=== PATIENT | male | born 1980 | race Caucasian/White ===

== ENCOUNTER 2021-02-17 22:16 | Inpatient (IN) ==
[2021-02-18] MEDS ORDERED: GLUCAGON 1 MG VIAL IM PRN (02:34)
[2021-02-18] MEDS ORDERED: DEXTROSE 50% 25 GM/50 ML VIAL IV PRN (02:34)
[2021-02-18] MEDS ORDERED: ACETAMINOPHEN 325 MG TABLET PO PRN (02:35)
[2021-02-18] MEDS ORDERED: SIMETHICONE CHEW 125 MG TABLET PO PRN (02:35)
[2021-02-18] MEDS ORDERED: MAGNESIUM SULF RIDER 2 GM/50 ML PREMIX IV PRN (02:35)
[2021-02-18] MEDS ORDERED: ONDANSETRON 4 MG/2 ML VIAL IV PRN (02:35)
[2021-02-18] MEDS ORDERED: hydrALAZINE 20 MG/1 ML VIAL IV PRN (02:35)
[2021-02-18] MEDS ORDERED: DOCUSATE SODIUM 100 MG CAPSULE PO PRN (02:35)
[2021-02-18] MEDS ORDERED: MAGNESIUM SULF RIDER 4 GM/100 ML PREMIX IV PRN (02:35)
[2021-02-18] MEDS ORDERED: OLANZapine 10 MG VIAL IM PRN (02:46)
[2021-02-18] MEDS ORDERED: HALOPERIDOL 5 MG/ML AMP IM ONE (02:57)
[2021-02-18 03:09] LABS: Basophils % 0.4 % (0.0-0.8); Eosinophils # 0.3 10*3/uL (0.0-0.87); Eosinophils % 2.6 % (0.00-10.9); Hematocrit 34.5 VOL% (42.0-52.0); Hemoglobin 11.4 GM/DL (14.0-18.0); Immature Granulocytes % 0.3 %; Immature Granulocytes Absolute 0.03 #; Lymphocytes # 1.7 10*3/uL (1.4-4.0); Lymphocytes % 17.8 % (21.2-54.2); Mean Corpuscular Volume 94.3 FL (87-102); Mean Platelet Volume 9.1 FL (9.6-12.0); Monocytes % 7.1 % (1.7-12.7); Neutrophils % 71.8 % (38.7-73.9); Platelet Count 211 T/CUMM (130-400); Red Blood Count 3.66 MC/CUMM (3.8-5.5); Red Cell Distribution Width 14.2 % (9.3-17.3); White Blood Count 9.5 T/CUMM (4-12)
[2021-02-18] MEDS: ENOXAPARIN 40 MG/0.4 ML SYRINGE SUBCUT SCH (03:30)
[2021-02-18] MEDS: SODIUM CHLORIDE 0.9% 1,000 ML IV SCH ×2 (03:31→13:38)
[2021-02-18 03:33] LABS: Alanine Aminotransferase 46 U/L (16-61); Albumin 3.2 G/DL (3.4-5.0); Alkaline Phosphatase 69 U/L (45-117); Aspartate Amino Transferase 22 U/L (0-37); Bilirubin,Total < 0.39 MG/DL (0.20-1.00); Blood Urea Nitrogen 17 MG/DL (7-18); Calcium 8.7 MG/DL (8.5-10.1); Carbon Dioxide 23 MMOL/L (21-32); Estimated Glom Filtration Rate 76 ML/MIN; Glucose 89 MG/DL (74-106); HDL Cholesterol 40 MG/DL (40-60); Potassium 3.9 MMOL/L (3.5-5.1); Risk Ratio 3.75; Sodium 143 MMOL/L (136-145); Total Protein 6.9 G/DL (6.4-8.2); Triglycerides 152 MG/DL (2-150); VLDL Cholesterol 30.4 MG/DL
[2021-02-18] MEDS: POTASSIUM CHLORIDE RIDER 10 MEQ/100 ML PREMIX IV PRN ×2 (05:06→06:31)
[2021-02-18] MEDS: risperiDONE 1 MG TABLET PO SCH ×2 (08:01→20:43)
[2021-02-18 12:53] LABS: Bacteria,Urine Occasional /HPF (Few); Bilirubin,Urine Negative (Negative); Blood, Urine Moderate mg/dL (Negative); Glucose,Urine (UA) Negative (Negative); Ketones,Urine Negative (Negative); Mucus,Urine Occasional /LPF (Occasional); Nitrite,Urine Negative (Negative); Protein,Urine 30 MG/DL; RBC,Urine 109 /HPF (0-4); Urine Appearance Slightly Hazy (Clear); Urine Color Yellow (Yellow); Urine Specific Gravity 1.008 (1.001-1.035); Urine Urobilinogen < 2.0 EU/DL (0.2-1.0)
[2021-02-18] MEDS: PIPERACILLIN/TAZOBACTAM 3,375 MG in SODIUM CHLORIDE 0.9% 100 ML IV SCH ×4 (13:38→20:43)
[2021-02-18] MEDS: HALOPERIDOL 5 MG/ML AMP IM PRN (13:38)
[2021-02-19] MEDS: ENOXAPARIN 40 MG/0.4 ML SYRINGE SUBCUT SCH (03:47)
[2021-02-19] MEDS: PIPERACILLIN/TAZOBACTAM 3,375 MG in SODIUM CHLORIDE 0.9% 100 ML IV SCH ×3 (04:57→21:07)
[2021-02-19 06:39] LABS: Basophils % 0.8 % (0.0-0.8); Eosinophils # 0.5 10*3/uL (0.0-0.87); Eosinophils % 9.8 % (0.00-10.9); Hematocrit 32.7 VOL% (42.0-52.0); Hemoglobin 10.7 GM/DL (14.0-18.0); Immature Granulocytes % 0.2 %; Immature Granulocytes Absolute 0.01 #; Lymphocytes # 1.6 10*3/uL (1.4-4.0); Lymphocytes % 31.3 % (21.2-54.2); Mean Corpuscular HGB Conc 32.7 GM/DL (32-36); Mean Corpuscular Volume 94.8 FL (87-102); Mean Platelet Volume 9.4 FL (9.6-12.0); Monocytes % 7.9 % (1.7-12.7); Platelet Count 219 T/CUMM (130-400); Red Blood Count 3.45 MC/CUMM (3.8-5.5); Red Cell Distribution Width 14.2 % (9.3-17.3); White Blood Count 5.2 T/CUMM (4-12)
[2021-02-19 07:09] LABS: Calcium 8.7 MG/DL (8.5-10.1); Osmolality,Calculated 278.3 MOS/KG (273-304); Potassium 3.8 MMOL/L (3.5-5.1)
[2021-02-19] MEDS: risperiDONE 1 MG TABLET PO SCH ×2 (08:36→21:08)
[2021-02-19] MEDS: SODIUM CHLORIDE 0.9% 1,000 ML IV SCH ×2 (10:23→22:11)
[2021-02-19] MEDS ORDERED: INFLUENZA VIRUS VACCINE 0.5 ML SYRINGE IM ONE (10:55)
[2021-02-20] MEDS: ENOXAPARIN 40 MG/0.4 ML SYRINGE SUBCUT SCH (03:05)
[2021-02-20] MEDS: SODIUM CHLORIDE 0.9% 1,000 ML IV SCH ×3 (03:06→17:29)
[2021-02-20] MEDS: PIPERACILLIN/TAZOBACTAM 3,375 MG in SODIUM CHLORIDE 0.9% 100 ML IV SCH ×3 (05:17→21:09)
[2021-02-20] MEDS: risperiDONE 1 MG TABLET PO SCH ×2 (08:55→21:08)
[2021-02-20] MEDS: HALOPERIDOL 5 MG/ML AMP IM PRN (12:27)
[2021-02-21] MEDS: SODIUM CHLORIDE 0.9% 1,000 ML IV SCH ×3 (02:25→23:03)
[2021-02-21] MEDS: ENOXAPARIN 40 MG/0.4 ML SYRINGE SUBCUT SCH (03:10)
[2021-02-21] MEDS: PIPERACILLIN/TAZOBACTAM 3,375 MG in SODIUM CHLORIDE 0.9% 100 ML IV SCH ×3 (05:44→20:07)
[2021-02-21] MEDS: risperiDONE 1 MG TABLET PO SCH ×2 (08:22→20:04)
[2021-02-21] MEDS: HALOPERIDOL 5 MG/ML AMP IM PRN (11:37)
[2021-02-22] MEDS: ENOXAPARIN 40 MG/0.4 ML SYRINGE SUBCUT SCH (03:46)
[2021-02-22] MEDS: PIPERACILLIN/TAZOBACTAM 3,375 MG in SODIUM CHLORIDE 0.9% 100 ML IV SCH ×2 (04:27→14:39)
[2021-02-22] MEDS: SODIUM CHLORIDE 0.9% 1,000 ML IV SCH ×2 (06:01→21:15)
[2021-02-22] MEDS: risperiDONE 1 MG TABLET PO SCH ×2 (11:02→21:15)
[2021-02-22] MEDS: NICOTINE 21 MG/24 HR PATCH TRANSDERM PRN (11:18)
[2021-02-22] MEDS: HALOPERIDOL 5 MG/ML AMP IM PRN ×2 (14:14→21:15)
[2021-02-22] MEDS: CIPROFLOXACIN INJ 400 MG/200 ML PREMIX IV SCH (21:15)
[2021-02-22] MEDS: HALOPERIDOL 5 MG TABLET PO SCH (21:29)
[2021-02-23] MEDS: ENOXAPARIN 40 MG/0.4 ML SYRINGE SUBCUT SCH (02:20)
[2021-02-23] MEDS: SODIUM CHLORIDE 0.9% 1,000 ML IV SCH ×2 (05:45→21:30)
[2021-02-23] MEDS: risperiDONE 1 MG TABLET PO SCH ×2 (09:08→21:28)
[2021-02-23] MEDS: HALOPERIDOL 5 MG TABLET PO SCH ×3 (09:08→21:28)
[2021-02-23] MEDS: CIPROFLOXACIN INJ 400 MG/200 ML PREMIX IV SCH ×2 (09:09→21:25)
[2021-02-23] MEDS: NICOTINE 21 MG/24 HR PATCH TRANSDERM PRN (09:09)
[2021-02-23] MEDS: HALOPERIDOL 5 MG/ML AMP IM PRN (11:24)
[2021-02-24] MEDS: ENOXAPARIN 40 MG/0.4 ML SYRINGE SUBCUT SCH (03:05)
[2021-02-24] MEDS: HALOPERIDOL 5 MG TABLET PO SCH ×3 (09:43→20:45)
[2021-02-24] MEDS: risperiDONE 1 MG TABLET PO SCH ×2 (09:43→20:45)
[2021-02-24] MEDS: CIPROFLOXACIN INJ 400 MG/200 ML PREMIX IV SCH (09:43)
[2021-02-24] MEDS: NICOTINE 21 MG/24 HR PATCH TRANSDERM PRN (10:03)
[2021-02-24] MEDS: SODIUM CHLORIDE 0.9% 1,000 ML IV SCH ×3 (10:31→23:09)
[2021-02-24] MEDS: HALOPERIDOL 5 MG/ML AMP IM PRN (12:21)
[2021-02-24] MEDS: AMOXICILLIN 500 MG CAPSULE PO SCH ×2 (12:21→16:06)
[2021-02-24] MEDS ORDERED: INFLUENZA VIRUS VACCINE 0.5 ML SYRINGE IM ONE (15:41)
[2021-02-25] MEDS: ENOXAPARIN 40 MG/0.4 ML SYRINGE SUBCUT SCH (03:15)
[2021-02-25] MEDS: risperiDONE 1 MG TABLET PO SCH ×2 (08:49→20:47)
[2021-02-25] MEDS: HALOPERIDOL 5 MG TABLET PO SCH ×3 (08:49→20:48)
[2021-02-25] MEDS: NICOTINE 21 MG/24 HR PATCH TRANSDERM PRN (08:49)
[2021-02-25] MEDS: AMOXICILLIN 500 MG CAPSULE PO SCH ×3 (08:50→16:35)
[2021-02-25] MEDS: HALOPERIDOL 5 MG/ML AMP IM PRN (10:04)
[2021-02-25] MEDS: SODIUM CHLORIDE 0.9% 1,000 ML IV SCH ×2 (10:28→19:54)
[2021-02-25 20:52] VITALS: BP 100/59
== END 2021-02-25 21:55 | disposition hospice, home (50) | DRG 885 ==
LOC: SUATTDRO 02-18 01:07 → N.3E 02-18 01:07
PROVIDERS: ADMIT Internal Medicine; ATTEND Internal Medicine